=== PATIENT | male | born 1960 | race Two or more races ===

== ENCOUNTER 2024-01-30 23:03 | Emergency (ER) | payer SELFPAY ==
[~2024-01-30] VITALS: Ht 190.5 cm; Wt 75.0 kg
[2024-01-30 23:07] VITALS: BP 115/80; PULSE 82; RESP 18; TEMP 98; O2SAT 98
== END 2024-01-30 23:07 | disposition left against medical advice (07) ==
LOC: EMS 23:06
DX: M79.672 Pain in left foot (principal); Z53.21 Procedure and treatment not carried out due to patient leaving prior to being seen by health care provider